=== PATIENT | male | born 1990 | race Two or more races ===

== ENCOUNTER 2018-05-17 20:52 | Emergency (ER) | payer MEDICAID, OTHER ==
[~2018-05-17] VITALS: Ht 170.2 cm; Wt 68.0 kg
[2018-05-18] MEDS ORDERED: BACLOFEN 10 MG TAB PO ONE (00:30)
[2018-05-18] MEDS ORDERED: TETANUS-DIPTH-ACEL PERTUSSIS 0.5ML SYRG IM ONE (00:30)
[2018-05-18] MEDS ORDERED: HYDROcodone-ACET 10/325MG TAB PO ONE (00:30)
[2018-05-18 02:12] VITALS: BP 126/74
== END 2018-05-18 02:12 | disposition home or self-care (01) ==
LOC: ER 20:52 → EDBD 20:52 → ER 05-18 02:12
DX: S01.111A Laceration without foreign body of right eyelid and periocular area, initial encounter (principal); M62.838 Other muscle spasm; M54.2 Cervicalgia; R51 Headache; M54.9 Dorsalgia, unspecified; V49.49XA Driver injured in collision with other motor vehicles in traffic accident, initial encounter; Y93.89 Activity, other specified; Y99.8 Other external cause status; Y92.410 Unspecified street and highway as the place of occurrence of the external cause
CPT/HCPCS: 12015; 70450; 72125; 73502; 90471; 90715